=== PATIENT | female | born 1970 | race Caucasian/White ===

== ENCOUNTER → 2018-04-09 | Outpatient (CLI) | payer OTHER ==
[~2018-04-09] MED LIST: CHERATUSSIN DA480 ML PO; IMITREX100 MG; NOHOMEMEDICATIONS; NORCO 5-325 TA1 EACH PO; PREVACID 30MG C30 M1 PO; ZPAK PO
== END ==
LOC: M.RAD 13:24
DX: M54.6 Pain in thoracic spine (principal); M25.512 Pain in left shoulder

== ENCOUNTER → 2018-05-19 | Outpatient (CLI) | payer OTHER | LOC: M.MRI 04-27 11:44 | DX: M47.24 Other spondylosis with radiculopathy, thoracic region (principal); M47.22 Other spondylosis with radiculopathy, cervical region; R60.0 Localized edema ==